=== PATIENT | female | born 1990 | race Caucasian/White ===

== ENCOUNTER 2021-03-26 16:31 | Emergency (ER) | payer OTHER ==
[2021-03-26 17:29] LABS: Appearance CLOUDY (CLEAR); Bacteria MANY /HPF (NEGATIVE); Bilirubin NEGATIVE (NEGATIVE); Blood NEGATIVE Ery/ul (0-5); Epithelial Cells RARE /HPF (FEW); Glucose NEGATIVE (NEGATIVE); Ketones TRACE (NEGATIVE); Leukocyte Esterase NEGATIVE (NEGATIVE); Mucus MANY /HPF (NEGATIVE); Nitrite NEGATIVE (NEGATIVE); Protein,Urine Dip NEGATIVE (Negative); Specific Gravity 1.025 (1.005-1.025); Urobilinogen NEGATIVE mg/dL (0-1)
--- NOTE | 2021-03-26 17:42 | ERPHSYRPT ---
- History of Present Illness Time Seen by Provider: 03/26/21 16:50 Source: patient Exam Limitations: no limitations Patient Subjective Stated Complaint: PT states "I had to get IVF to get and my last period was in january and i have had 7 positive home tests in the past week and I am having some odd pain in my belly and back." Triage Nursing Assessment: Pt presented alert and oriented X 3, skin wpd Pt ambulates with an upright steady gait, able to speak in clear full sentences. PT in no apaprent respiratory distress. pt anxious. Physician History: Patient is a 30-year-old female presents to our ED with concerns of and back pain. Patient states that she had 7+ test in the past week. Patient is surprised because she requires IVF for conception. Patient requesting a test in our ED. Patient's back pain described as an ache with an occasional shooting pain down her right leg. Patient has no abdominal pain. No pelvic pain. However she does occasionally feels intermittent cramping sensation but none at the present time. No associated trauma. No fever. No nausea or vomiting. No diarrhea or rash. Patient states he is otherwise healthy. Patient declined pain medication. She voices no other complaints concerns at this time. Timing/Duration: week(s) (1 week) Severity: mild Modifying Factors: Improves With: nothing Associated Symptoms: denies symptoms Allergies/Adverse Reactions: No Known Drug Allergies Allergy (Verified 03/26/21 16:45) Hx Tetanus, Diphtheria Vaccination/Date Given: No Hx Influenza Vaccination/Date Given: No Hx Pneumococcal Vaccination/Date Given: No Immunizations Up to Date: Yes Travel Risk - International Travel Have you traveled outside of the country in past 3 weeks: No - Coronavirus Screening Are you exhibiting any of the following symptoms?: No Close contact with a COVID-19 positive Pt in past 14-21 Days: No - Vaccine Status Have you recieved a Covid-19 vaccination: No - Review of Systems Constitutional: No Symptoms, No Fever, No Chills Eyes: No Symptoms Ears, Nose, & Throat: No Symptoms Respiratory: No Symptoms, No Cough, No Dyspnea Cardiac: No Symptoms, No Chest Pain, No Edema, No Syncope Abdominal/Gastrointestinal: No Symptoms, No Abdominal Pain, No Nausea, No Vomiting, No Diarrhea Genitourinary Symptoms: No Symptoms, No Dysuria Musculoskeletal: No Symptoms, No Back Pain, No Neck Pain Skin: No Symptoms, No Rash Neurological: No Symptoms, No Dizziness, No Focal Weakness, No Sensory Changes Psychological: No Symptoms Endocrine: No Symptoms All Other Systems: Reviewed and Negative - Past Medical History Pertinent Past Medical History: Yes Other Medical History: MTHFR - Past Surgical History Past Surgical History: Yes Other Surgical History: 5 c section. leon - Social History Smoking Status: Never smoker Exposure to second hand smoke: No Drug Use: none Patient Lives Alone: No - Female History Hx Last Menstrual Period: 02/06/2021 Hx Now: No (unknown) - Nursing Vital Signs Nursing Vital Signs: Initial Vital Signs Temperature 97.7 F 03/26/21 16:39 Pulse Rate 109 H 03/26/21 16:39 Respiratory Rate 20 03/26/21 16:39 Blood Pressure 150/100 03/26/21 16:39 O2 Sat by Pulse Oximetry 99 03/26/21 16:39 Pain Scale Pain Intensity 6 - Physical Exam General Appearance: no apparent distress, alert Eye Exam: PERRL/EOMI, eyes nml inspection Ears, Nose, Throat Exam: normal ENT inspection, TMs normal, pharynx normal, moist mucous membranes Neck Exam: normal inspection, non-tender, supple, full range of motion Respiratory Exam: normal breath sounds, lungs clear, airway intact, No respiratory distress Cardiovascular Exam: regular rate/rhythm, normal heart sounds, normal peripheral pulses Gastrointestinal/Abdomen Exam: soft, normal bowel sounds, No tenderness, No mass Back Exam: normal inspection, normal range of motion, No CVA tenderness, No vertebral tenderness Extremity Exam: normal inspection, normal range of motion, pelvis stable Neurologic Exam: alert, oriented x 3, cooperative, normal mood/affect, nml cerebellar function, nml station & gait, sensation nml, No motor deficits Skin Exam: normal color, warm, dry, No rash Lymphatic Exam: No adenopathy SpO2 Interpretation: normal SpO2: 99 O2 Delivery: Room Air - Course Nursing assessment & vital signs reviewed: Yes Ordered Tests: Active Orders 24 hr Category Date Time Status LUMBAR SPINE W/O [CT] Stat Exams 03/26/21 17:33 Ordered CULTURE,URINE Stat Lab 03/26/21 16:58 Received HCG,QUALITATIVE URINE Stat Lab 03/26/21 16:58 Completed UA W/RFX UR CULTURE Stat Lab 03/26/21 16:58 Completed Medication Summary Discontinued Medications Generic Name Dose Route Start Last Admin Trade Name Payal PRN Reason Stop Dose Admin Nitrofurantoin Macrocrystals 100 mg 03/26/21 17:49 03/26/21 17:51 Nitrofurantoin Macro 100 Mg Capsule PO 03/26/21 17:50 100 mg STAT ONE Administration Nitrofurantoin Macrocrystals Confirm 03/26/21 17:50 Nitrofurantoin Macro 100 Mg Capsule Administered 03/26/21 17:51 Dose 100 mg .ROUTE .STK-MED ONE Lab/Rad Data: Laboratory Results 03/26/21 03/26/21 Range/Units 16:58 16:58 Urine Color YELLOW (YELLOW) Urine Appearance CLOUDY (CLEAR) Urine pH 5.0 (5-6) Ur Specific [place] 1.025 (1.005-1.025) Urine Protein NEGATIVE (Negative) Urine Ketones TRACE (NEGATIVE) Urine Blood NEGATIVE (0-5) Tristan/ul Urine Nitrite NEGATIVE (NEGATIVE) Urine Bilirubin NEGATIVE (NEGATIVE) Urine Urobilinogen NEGATIVE (0-1) mg/dL Ur Leukocyte Esterase NEGATIVE (NEGATIVE) Urine WBC (Auto) 6-10 (0-5) /HPF Urine RBC (Auto) 3-5 (0-2) /HPF U Epithel Cells (Auto) RARE (FEW) /HPF Urine Bacteria (Auto) MANY (NEGATIVE) /HPF Urine Mucus (Auto) MANY (NEGATIVE) /HPF Urine Culture Reflexed YES (NO) Urine Glucose NEGATIVE (NEGATIVE) mg/dL Urine HCG, Qual NEGATIVE (Negative) - Progress Progress: improved Progress Note: Patient reassessed. She feels well. UA reveals urinary tract infection. Patient wants to hold off on CT lumbar spine. Patient believes that her pain may improve once the urinary tract infection is resolved. Patient received a dose of Macrobid in our ED. A prescription for the same was forwarded to patient's pharmacy. Patient agrees to follow-up with her primary care doctor within 48 hours for reevaluation. She voices no other complaints or concerns at this time. Portions of this note were created with voice recognition technology. There may be grammatical, spelling, punctuation or sound alike errors 03/26/21 17:55 Counseled pt/family regarding: lab results, diagnosis, need for follow-up - Departure Departure Disposition: Home Clinical Impression: UTI (urinary tract infection) Condition: Stable Critical Care Time: No Referrals: [facility] [Primary Care Provider] - Follow up/PCP as directed Additional Instructions: Discharge/Care Plan SMOOTH PETERSON was seen on 03/26/21 in the Emergency Room. The patient was counseled regarding Diagnosis,Lab results, Imaging studies, need for follow up and when to return to the Emergency Room. Prescriptions given: Discharge Note I have spoken with the patient and/or caregivers. I have explained the patient's condition, diagnosis and treatment plan based on the information available to me at this time. I have answered the patient's and/or caregiver's questions and addressed any concerns. The patient and/or caregivers have as good understanding of the patient's diagnosis, condition and treatment plan as can be expected at this point. The vital signs have been stable. The patient's condition is stable and appropriate for discharge from the emergency department. The patient will pursue further outpatient evaluation with the primary care physician or other designated or consulting physician as outlined in the discharge instructions. The patient and/or caregivers are agreeable to this plan of care and follow-up instructions have been explained in detail. The patient and/or caregivers have received these instruction. The patient/and or caregivers are aware that any significant change in condition or worsening of symptoms should prompt an immediate return to this or the closest emergency department or call 911. Prescriptions: Nitrofurantoin Macro 100 mg [Macrobid 100MG Capsule] 100 mg PO BID 7 Days #14 cap
[2021-03-26] MEDS ORDERED: Macrobid 100MG Capsule PO ONE (17:49)
[2021-03-26] MEDS ORDERED: Macrobid 100MG Capsule ONE (17:50)
[2021-03-26 17:55] VITALS: BP 123/75
[2021-03-26 18:09] VITALS: PULSE 80; O2SAT 98
== END 2021-03-26 18:09 | disposition home or self-care (01) ==
LOC: ED 16:31
DX: N39.0 Urinary tract infection, site not specified (principal); Z32.02 Encounter for pregnancy test, result negative
CPT/HCPCS: 81001; 84703; 87086; 99283; A9270-GY